=== PATIENT | male | born 1985 | race Caucasian/White ===

== ENCOUNTER 2017-06-10 16:54 | Emergency (ER) | payer MEDICAID ==
[~2017-06-10] VITALS: Ht 188 cm; Wt 108.9 kg
[2017-06-10 17:00] VITALS: BP 137/76
== END 2017-06-10 17:37 | disposition home or self-care (01) ==
LOC: ER 16:56
DX: A49.9 Bacterial infection, unspecified (principal)
CPT/HCPCS: 82962-TC; A4606; Z7610

== ENCOUNTER 2017-07-04 17:58 | Emergency (ER) | payer MEDICAID ==
[~2017-07-04] VITALS: Ht 188 cm; Wt 104.3 kg
--- NOTE | 2017-07-04 18:00 | NUR ---
BIBSELF TO ED DT PRESSURE LIKE HEAD PAIN X 1 WEEK, 5/10 NON RADIATING. PATIENT IS AAO4,. NO NAUSEA NOR VOMITTING, VSS
--- NOTE | 2017-07-04 18:11 | NUR ---
MD AROCS AT BEDSIDE
[2017-07-04 18:30] VITALS: BP 134/76
--- NOTE | 2017-07-04 18:31 | NUR ---
Patient discharged to home in stable condition. Written and verbal after care instructions given. Patient verbalizes understanding of instruction.
== END 2017-07-04 18:33 | disposition home or self-care (01) ==
LOC: ER 17:59
DX: R51 Headache (principal); H93.13 Tinnitus, bilateral
CPT/HCPCS: 99282; A4606; Z7610

== ENCOUNTER 2018-07-22 23:54 | Emergency (ER) | payer MEDICAID ==
[~2018-07-22] VITALS: Ht 188 cm; Wt 103.0 kg
--- NOTE | 2018-07-23 03:20 | NUR ---
MD AT BEDSIDE FOR EVALUATION
--- NOTE | 2018-07-23 03:27 | NUR ---
RADIOLOGY AT BEDSIDE
[2018-07-23] MEDS ORDERED: LIDOCAINE HCL/PF 1% 30 ML VIAL TP ONE (03:30)
[2018-07-23] MEDS ORDERED: TDAP [DIPH/PERTUSSIS/TET] 0.5 ML VIAL IM ONE ×2 (03:30→03:45)
[2018-07-23] MEDS ORDERED: ACETAMINOPHEN ES 500 MG TABLET PO ONE (03:30)
[2018-07-23] MEDS ORDERED: CEPHALEXIN MONOHYDRATE 500 MG CAPSULE PO ONE ×2 (03:30→03:45)
[2018-07-23] MEDS ORDERED: SODIUM BICARBONATE 5 ML VIAL TP ONE (03:30)
[2018-07-23] MEDS ORDERED: LIDOCAINE HCL/PF 1% 30 ML SDV ONE (03:44)
[2018-07-23] MEDS ORDERED: SODIUM BICARBONATE 5 ML VIAL ONE (03:44)
[2018-07-23] MEDS ORDERED: ACETAMINOPHEN ES 500 MG TABLET ONE (03:45)
--- NOTE | 2018-07-23 04:56 | NUR ---
Patient discharged to home in stable condition. Written and verbal after care instructions given. Patient verbalizes understanding of instruction. Pt ambulatory with a steady gait
--- NOTE | 2018-07-23 04:56 | NUR ---
DISPatient discharged to home in stable condition. Written and verbal after care instructions given. Patient verbalizes understanding of instruction.
[2018-07-23 05:00] VITALS: BP 125/77
== END 2018-07-23 05:05 | disposition home or self-care (01) ==
LOC: ER 23:58
DX: S51.011A Laceration without foreign body of right elbow, initial encounter (principal); S63.591A Other specified sprain of right wrist, initial encounter; F10.10 Alcohol abuse, uncomplicated; F17.200 Nicotine dependence, unspecified, uncomplicated; Y90.9 Presence of alcohol in blood, level not specified; Z60.2 Problems related to living alone; W01.198A Fall on same level from slipping, tripping and stumbling with subsequent striking against other object, initial encounter; Y93.89 Activity, other specified; Y92.89 Other specified places as the place of occurrence of the external cause; Y99.8 Other external cause status
CPT/HCPCS: 73080-TC; 73110; 90715; A4606; J3490; Z7610

== ENCOUNTER 2019-12-17 19:40 | Emergency (ER) | payer MEDICAID ==
[~2019-12-17] VITALS: Ht 188 cm; Wt 106.6 kg
[2019-12-17 19:40] VITALS: BP 125/83
--- NOTE | 2019-12-17 20:20 | NUR ---
TO ER BED 5 AMBULATORY WITH CRUTCHES C/O L KNEE PAIN AND SWELLING S/P L KNEE ASPIRATION 12/12. PT REPORTS L KNEE INJURY TO L KNE 11/28. PT AAOX4 NO ACUTE DISTRESS NOTED, RESP EVEN AND UNLABORED. PENDING ER MD TRUJILLO.
--- NOTE | 2019-12-17 21:21 | NUR ---
MOHIT RANDLE AT BEDSIDE TO CASSANDRA BARCLAY.
--- NOTE | 2019-12-17 21:47 | NUR ---
Patient is resting comfortably in bed. Easily aroused. VSS. Family at bedside.
--- NOTE | 2019-12-17 22:10 | NUR ---
Cassi aguirre in [facility] - 12/17/19 at 2215 by BELINDAOR US AT BEDSIDE
--- NOTE | 2019-12-17 22:40 | NUR ---
US AT BEDSIDE
--- NOTE | 2019-12-17 23:47 | NUR ---
Patient discharged to home in stable condition. Written and verbal after care instructions given. Patient verbalizes understanding of instruction. Pt did not sign discharge papers. VSS. Pt ambulated with crutches. No acute distress noted.
== END 2019-12-18 00:05 | disposition home or self-care (01) ==
LOC: ER 19:41
DX: R22.42 Localized swelling, mass and lump, left lower limb (principal); M79.662 Pain in left lower leg; Z60.2 Problems related to living alone
CPT/HCPCS: 93971-TC